=== PATIENT | female | born 2000 | race Caucasian/White ===

== ENCOUNTER 2018-07-07 18:38 | Emergency (ER) | payer SELFPAY ==
[2018-07-07 18:52] VITALS: BP 121/75; PULSE 94; RESP 18; TEMP 36.6; O2SAT 100; BMI 27.4
--- NOTE | 2018-07-07 20:26 | DI.RAD.S_ITS ---
PROCEDURE: XR ACUTE ABDOMEN SERIES INDICATIONS: Abdominal pain, N/V/D TECHNIQUE: One view chest and two views of the abdomen were acquired. COMPARISON: None. FINDINGS: Surgical changes and devices: None. Chest: Lungs are clear. Heart size is normal. No pleural effusions. No pneumoperitoneum. Abdomen: Bowel gas pattern is normal. There is an appearance of increased opacity identified within the right hemiabdomen and pelvis overlying the colon. Visualized solid organ contours appear normal. Bones: No suspicious bony lesions. IMPRESSION: 1. No obstruction. 2. Opacity overlying the right colon suspected to be related to bowel contents. Dictated by: Cristina Garcia M.D. on 07/07/2018 at 20:44 Approved by: Cristina Garcia M.D. on 07/07/2018 at 20:46
[2018-07-07] MEDS: SODIUM CHLORIDE 0.9% 1,000 ML 1000 ML IV (20:56)
[2018-07-07] MEDS: ONDANSETRON 4 MG/2 ML INJ IV (20:56)
[2018-07-07 21:07] LABS: Add Manual Diff / Slide Review NO; Basophils Percent Auto 0.2 % (0-2); Hematocrit 41.1 % (36-46); Hemoglobin 13.8 g/dL (12.0-16.0); Lymphocytes Percent Auto 8.2 % (25-40); Mean Corpuscular HGB Conc 33.7 % (30-36); Mean Corpuscular Hemoglobin 29.5 PG (26-34); Mean Corpuscular Volume 87.5 fL (80-100); Monocytes Percent Auto 9.2 % (3-14); Neutrophils Absolute Auto 12000 /uL (1500-7000); Neutrophils Percent Auto 82.4 % (50-75); Platelet Count 288 X10^3/uL (150-400); White Blood Cell Count 14.6 X10^3/uL (4.5-11.0)
[2018-07-07 21:15] LABS: Alanine Aminotransferase 25 IU/L (9-52); Albumin 4.9 g/dL (3.5-5.0); Albumin Globulin Ratio 1.3 (1.0-2.8); Alkaline Phosphatase 59 U/L (38-126); Aspartate Aminotransferase 29 IU/L (14-36); BUN Creatinine Ratio 18.6 (6-22); Bilirubin Total 0.6 mg/dL (0.2-1.3); Blood Urea Nitrogen 13 mg/dL (7-17); Calcium 9.6 mg/dL (8.4-10.2); Carbon Dioxide 30 mmol/L (22-32); Chloride 93 mmol/L (98-107); Estimated Glomerular Filt Rate > 60.0 mL/min (>60); Globulin 3.8 g/dL (1.7-4.1); Glucose 97 mg/dL (70-100); Potassium 3.1 mmol/L (3.4-5.1); Sodium 139 mmol/L (137-145); Total Protein 8.7 g/dL (6.3-8.2)
[2018-07-07 21:17] LABS: HEMOLYSIS 52 (0-50)
--- NOTE | 2018-07-07 21:18 | ED.NAVMDI ---
HPI - Nausea/Vomiting/Diarrhea General Chief complaint: Nausea/Vomiting/Diarrhea Stated complaint: states vomiting water x3 days Time Seen by Provider: 07/07/18 20:25 Source: patient and family Mode of arrival: ambulatory Limitations: no limitations History of Present Illness HPI Narrative: 17-year-old female, nonsmoker presents to the emergency department with her father and a chief complaint of nausea and vomiting over the past few days. She denies fever or chills. She has had abdominal discomfort and cramping that builds until she vomits at which point improved greatly. She has had no diarrhea. She feels a bit fatigued but denies any significant dizziness or lightheadedness. She denies any recent antibiotic use, international travel, exposure to ill persons or bad food MD complaint: nausea and vomiting Onset (ago): day(s) Description of Vomiting: watery Description of Diarrhea: none Associated Abdominal Pain: Yes Location of pain: diffuse Severity: mild Quality: cramping Relieving factors: vomiting Exacerbating factors: none Associated symptoms: denies other symptoms Related Data Previous Rx's Medication Instructions Recorded ondansetron 4 mg PO TID-QID PRN #10 tab 07/07/18 potassium chloride 20 meq PO DAILY #5 tab 07/07/18 Allergies Allergy/AdvReac Type Severity Reaction Status Date / Time No Known Drug Allergies Allergy Verified 07/07/18 18:57 Review of Systems Review of Systems All systems reviewed & are unremarkable except as noted in HPI and below Constitutional Denies chills, Denies fever(s), Denies lethargy and Denies weakness Eyes Denies change in vision, Denies eye discharge, Denies irritation and Denies loss of vision ENT Ears, Nose, Mouth, and Throat: Denies change in voice, Denies neck pain and Denies sore throat Cardiovascular Denies chest pain, Denies irregular heart rhythm, Denies lightheadedness, Denies palpitations, Denies dyspnea, Denies dyspnea on exertion and Denies orthopnea Respiratory Denies cough, Denies dyspnea, Denies dyspnea on exertion and Denies wheezing Gastrointestinal Gastrointestinal: Denies abdominal pain, Denies change in bowel habits, Denies diarrhea, Reports nausea and Reports vomiting Genitourinary Denies hematuria, Denies flank pain, Denies urinary incontinence and Denies urinary urgency Musculoskeletal Denies neck pain Integumentary/Breasts Denies pruritus, Denies erythema, Denies rash and Denies wounds Neurologic Denies confusion, Denies loss of vision and Denies weakness Psychiatric Denies anxiety, Denies confusion, Denies depression, Denies homicidal ideation and Denies suicidal ideation Endocrine Denies palpitations Hematologic/Lymphatic Denies easy bruising Allergic/Immunologic Denies wheezing [facility] Social History Smoking Status: Never smoker Exam Narrative Exam Narrative: 17-year-old female in mild distress, holding an emesis bag Initial Vital Signs Initial Vital Signs: Vital Signs Temperature 97.8 F 07/07/18 18:52 Pulse Rate 94 H 07/07/18 18:52 Respiratory Rate 18 07/07/18 18:52 Blood Pressure 121/75 07/07/18 18:52 Pulse Oximetry 100 07/07/18 18:52 Const General: cooperative and well developed Nutritional Appearance: well nourished Orientation: alert, awake, oriented x3 and not confused HENMT Head: normal to inspection Ears: hearing grossly normal bilaterally Nose: external nose normal Face and sinus: normal facial exam Eyes General: appearance normal, both eyes and all related structures Eyelids: eyelids normal Conjunctivae: conjunctivae normal Sclera: sclerae normal Pupils: PERRL EOM: EOM intact bilaterally Chest Chest: normal inspection of the chest Cardio Rate: regular rate Rhythm: regular rhythm Heart Sounds: no click, no gallops, no murmurs and no rubs Pulses: normal peripheral pulses GI Inspection: non-distended Palpation: soft, no hepatosplenomegaly, No guarding, No pulsatile mass and No tender Auscultation: normal bowel sounds Skin General: no rashes or lesions noted, No jaundice and No petechiae Extrem General: full ROM, no clubbing, cyanosis or edema, no pedal edema and no calf tenderness Course Orders Ordered: ED Orders 07/07/18 20:26 XR acute abdomen series Stat 07/07/18 21:02 Complete Blood Count AUTO DIFF Stat Comprehensive Metabolic Panel Stat Discontinued Medications Sodium Chloride (Normal Saline 0.9%) 1,000 mls @ 1,000 mls/hr IV BOLUS ONE Stop: 07/07/18 21:24 Last Infusion: 07/07/18 21:56 Dose: 0 mls/hr Admin: 07/07/18 20:56 Dose: 1,000 mls/hr Ondansetron HCl (Zofran) 4 mg IV NOW ONE Stop: 07/07/18 20:26 Last Admin: 07/07/18 20:56 Dose: 4 mg Ondansetron HCl (Zofran Odt Prepack) 1 bottle MISC SEEINSTR ONE Stop: 07/07/18 21:31 Last Admin: 07/07/18 21:44 Dose: 1 bottle Pantoprazole Sodium (Protonix) 40 mg IV NOW ONE Stop: 07/07/18 21:19 Last Admin: 07/07/18 21:21 Dose: 40 mg Potassium Chloride (Potassium Chloride) 40 meq PO NOW ONE Stop: 07/07/18 21:21 Last Admin: 07/07/18 21:27 Dose: 40 meq Reevaluation(s) Reevaluation #1: Patient feels notable improvement after above-stated therapies Vital Signs - 8 hr 07/07/18 18:52 07/07/18 21:57 Temperature 97.8 F Pulse Rate 94 H 74 Respiratory Rate 18 15 Blood Pressure 121/75 Blood Pressure [Right Arm] 113/61 Pulse Oximetry 100 98 MDM - Nausea/Vomiting/Diarrhea Lab Data Attestation: I reviewed the patient's lab results. Result diagrams: 07/07/18 21:02 07/07/18 21:02 Lab Results 07/07/18 07/07/18 Range/Units 21:02 21:02 WBC 14.6 H (4.5-11.0) X10^3/uL RBC 4.70 (4.0-5.2) X10^6/uL Hgb 13.8 (12.0-16.0) g/dL Hct 41.1 (36-46) % MCV 87.5 (80-100) fL MCH 29.5 (26-34) PG MCHC 33.7 (30-36) % RDW 14.0 (11.6-14.8) % Plt Count 288 (150-400) X10^3/uL Neut % (Auto) 82.4 H (50-75) % Lymph % (Auto) 8.2 L (25-40) % [place] % (Auto) 9.2 (3-14) % Eos % (Auto) 0.0 L (2-4) % Baso % (Auto) 0.2 (0-2) % Neut # (Auto) 98830 H (6759-4690) /uL Sodium 139 (137-145) mmol/L Potassium 3.1 L (3.4-5.1) mmol/L Chloride 93 L (98-107) mmol/L Carbon Dioxide 30 (22-32) mmol/L BUN 13 (7-17) mg/dL Creatinine 0.70 (0.52-1.04) mg/dL Estimated GFR > 60.0 (>60) mL/min BUN/Creatinine Ratio 18.6 (6-22) Glucose 97 (70-100) mg/dL Calcium 9.6 (8.4-10.2) mg/dL Total Bilirubin 0.6 (0.2-1.3) mg/dL AST 29 (14-36) IU/L ALT 25 (9-52) IU/L Alkaline Phosphatase 59 (38-126) U/L Total Protein 8.7 H (6.3-8.2) g/dL Albumin 4.9 (3.5-5.0) g/dL Globulin 3.8 (1.7-4.1) g/dL Albumin/Globulin Ratio 1.3 (1.0-2.8) Imaging Data Abdominal x-ray: Radiologist's impression: [place] [address] XRay Report Signed Patient: Isamar Wright MR#: [id number] : 2000 Acct:[id number] Age/Sex: 17 / F Date of Service: 07/07/18 Loc: ED Accession Number: [id number] Procedure: XR acute abdomen series Ordering Provider: Jesse Moore D.O. PROCEDURE: XR ACUTE ABDOMEN SERIES INDICATIONS: Abdominal pain, N/V/D TECHNIQUE: One view chest and two views of the abdomen were acquired. COMPARISON: None. FINDINGS: Surgical changes and devices: None. Chest: Lungs are clear. Heart size is normal. No pleural effusions. No pneumoperitoneum. Abdomen: Bowel gas pattern is normal. There is an appearance of increased opacity identified within the right hemiabdomen and pelvis overlying the colon. Visualized solid organ contours appear normal. Bones: No suspicious bony lesions. IMPRESSION: 1. No obstruction. 2. Opacity overlying the right colon suspected to be related to bowel contents. Dictated by: Cristina Garcia M.D. on 07/07/2018 at 20:44 Approved by: Cristina Garcia M.D. on 07/07/2018 at 20:46 Discharge Plan Departure Patient Disposition: Home Clinical Impression: Gastroenteritis Discharge Date/Time: 07/07/18 22:06 Interventions: ED Discharge Assessment Last Done: 07/07/18 22:05 Instructions: DI for Viral Gastroenteritis -- Adult Activity Restrictions/Additional Instructions: 1. Drink plenty of fluids with frequent small sips. 2. For the next 24 hours a clear liquid diet is advised. After that please employ a brat diet which would include bananas, rice, apples, toast. 3. Please take medications as directed. 4. Please follow-up with your doctor in the next 1-2 days. Call the office for an appointment. 5. Please return to the emergency Department for any worsening or persistent symptoms, such as increasing pain or fever. Prescriptions: New ondansetron 4 mg tablet,disintegrating 4 mg PO TID-QID PRN (Reason: nausea and vomiting) Qty: 10 RF: 0 potassium chloride 20 mEq tablet extended release 20 meq PO DAILY Qty: 5 RF: 0 Referrals: Carolin Sauceda MD [Non-Staff] -
[2018-07-07] MEDS: PANTOPRAZOLE 40 MG VIAL IV (21:21)
--- NOTE | 2018-07-07 21:22 | ED_ITS ---
HPI - Nausea/Vomiting/Diarrhea General Chief complaint: Nausea/Vomiting/Diarrhea Stated complaint: states vomiting water x3 days Time Seen by Provider: 07/07/18 20:25 Source: patient and family Mode of arrival: ambulatory Limitations: no limitations History of Present Illness HPI Narrative: 17-year-old female, nonsmoker presents to the emergency department with her father and a chief complaint of nausea and vomiting over the past few days. She denies fever or chills. She has had abdominal discomfort and cramping that builds until she vomits at which point improved greatly. She has had no diarrhea. She feels a bit fatigued but denies any significant dizziness or lightheadedness. She denies any recent antibiotic use , international travel, exposure to ill persons or bad food MD complaint: nausea and vomiting Onset (ago): day(s) Description of Vomiting: watery Description of Diarrhea: none Associated Abdominal Pain: Yes Location of pain: diffuse Severity: mild Quality: cramping Relieving factors: vomiting Exacerbating factors: none Associated symptoms: denies other symptoms Related Data Previous Rx's Medication Instructions Recorded ondansetron 4 mg PO TID-QID PRN #10 tab 07/07/18 potassium chloride 20 meq PO DAILY #5 tab 07/07/18 Allergies Allergy/AdvReac Type Severity Reaction Status Date / Time No Known Drug Allergies Allergy Verified 07/07/18 18:57 Review of Systems Review of Systems All systems reviewed & are unremarkable except as noted in HPI and below Constitutional Denies chills, Denies fever(s), Denies lethargy and Denies weakness Eyes Denies change in vision, Denies eye discharge, Denies irritation and Denies loss of vision ENT Ears, Nose, Mouth, and Throat: Denies change in voice, Denies neck pain and Denies sore throat Cardiovascular Denies chest pain, Denies irregular heart rhythm, Denies lightheadedness, Denies palpitations, Denies dyspnea, Denies dyspnea on exertion and Denies orthopnea Respiratory Denies cough, Denies dyspnea, Denies dyspnea on exertion and Denies wheezing Gastrointestinal Gastrointestinal: Denies abdominal pain, Denies change in bowel habits, Denies diarrhea, Reports nausea and Reports vomiting Genitourinary Denies hematuria, Denies flank pain, Denies urinary incontinence and Denies urinary urgency Musculoskeletal Denies neck pain Integumentary/Breasts Denies pruritus, Denies erythema, Denies rash and Denies wounds Neurologic Denies confusion, Denies loss of vision and Denies weakness Psychiatric Denies anxiety, Denies confusion, Denies depression, Denies homicidal ideation and Denies suicidal ideation Endocrine Denies palpitations Hematologic/Lymphatic Denies easy bruising Allergic/Immunologic Denies wheezing [facility] Social History Smoking Status: Never smoker Exam Narrative Exam Narrative: 17-year-old female in mild distress, holding an emesis bag Initial Vital Signs Initial Vital Signs: Vital Signs Temperature 97.8 F 07/07/18 18:52 Pulse Rate 94 H 07/07/18 18:52 Respiratory Rate 18 07/07/18 18:52 Blood Pressure 121/75 07/07/18 18:52 Pulse Oximetry 100 07/07/18 18:52 Const General: cooperative and well developed Nutritional Appearance: well nourished Orientation: alert, awake, oriented x3 and not confused HENMT Head: normal to inspection Ears: hearing grossly normal bilaterally Nose: external nose normal Face and sinus: normal facial exam Eyes General: appearance normal, both eyes and all related structures Eyelids: eyelids normal Conjunctivae: conjunctivae normal Sclera: sclerae normal Pupils: PERRL EOM: EOM intact bilaterally Chest Chest: normal inspection of the chest Cardio Rate: regular rate Rhythm: regular rhythm Heart Sounds: no click, no gallops, no murmurs and no rubs Pulses: normal peripheral pulses GI Inspection: non-distended Palpation: soft, no hepatosplenomegaly, No guarding, No pulsatile mass and No tender Auscultation: normal bowel sounds Skin General: no rashes or lesions noted, No jaundice and No petechiae Extrem General: full ROM, no clubbing, cyanosis or edema, no pedal edema and no calf tenderness Course Orders Ordered: ED Orders 07/07/18 20:26 XR acute abdomen series Stat 07/07/18 21:02 Complete Blood Count AUTO DIFF Stat Comprehensive Metabolic Panel Stat Discontinued Medications Sodium Chloride (Normal Saline 0.9%) 1,000 mls @ 1,000 mls/hr IV BOLUS ONE Stop: 07/07/18 21:24 Last Infusion: 07/07/18 21:56 Dose: 0 mls/hr Admin: 07/07/18 20:56 Dose: 1,000 mls/hr Ondansetron HCl (Zofran) 4 mg IV NOW ONE Stop: 07/07/18 20:26 Last Admin: 07/07/18 20:56 Dose: 4 mg Ondansetron HCl (Zofran Odt Prepack) 1 bottle MISC SEEINSTR ONE Stop: 07/07/18 21:31 Last Admin: 07/07/18 21:44 Dose: 1 bottle Pantoprazole Sodium (Protonix) 40 mg IV NOW ONE Stop: 07/07/18 21:19 Last Admin: 07/07/18 21:21 Dose: 40 mg Potassium Chloride (Potassium Chloride) 40 meq PO NOW ONE Stop: 07/07/18 21:21 Last Admin: 07/07/18 21:27 Dose: 40 meq Reevaluation(s) Reevaluation #1: Patient feels notable improvement after above-stated therapies Vital Signs - 8 hr 07/07/18 18:52 07/07/18 21:57 Temperature 97.8 F Pulse Rate 94 H 74 Respiratory Rate 18 15 Blood Pressure 121/75 Blood Pressure [Right Arm] 113/61 Pulse Oximetry 100 98 MDM - Nausea/Vomiting/Diarrhea Lab Data Attestation: I reviewed the patient's lab results. Result diagrams: 07/07/18 21:02 07/07/18 21:02 Lab Results 07/07/18 07/07/18 Range/Units 21:02 21:02 WBC 14.6 H (4.5-11.0) X10^3/uL RBC 4.70 (4.0-5.2) X10^6/uL Hgb 13.8 (12.0-16.0) g/dL Hct 41.1 (36-46) % MCV 87.5 (80-100) fL MCH 29.5 (26-34) PG MCHC 33.7 (30-36) % RDW 14.0 (11.6-14.8) % Plt Count 288 (150-400) X10^3/uL Neut % (Auto) 82.4 H (50-75) % Lymph % (Auto) 8.2 L (25-40) % [place] % (Auto) 9.2 (3-14) % Eos % (Auto) 0.0 L (2-4) % Baso % (Auto) 0.2 (0-2) % Neut # (Auto) 36450 H (0638-6188) /uL Sodium 139 (137-145) mmol/L Potassium 3.1 L (3.4-5.1) mmol/L Chloride 93 L (98-107) mmol/L Carbon Dioxide 30 (22-32) mmol/L BUN 13 (7-17) mg/dL Creatinine 0.70 (0.52-1.04) mg/dL Estimated GFR > 60.0 (>60) mL/min BUN/Creatinine Ratio 18.6 (6-22) Glucose 97 (70-100) mg/dL Calcium 9.6 (8.4-10.2) mg/dL Total Bilirubin 0.6 (0.2-1.3) mg/dL AST 29 (14-36) IU/L ALT 25 (9-52) IU/L Alkaline Phosphatase 59 (38-126) U/L Total Protein 8.7 H (6.3-8.2) g/dL Albumin 4.9 (3.5-5.0) g/dL Globulin 3.8 (1.7-4.1) g/dL Albumin/Globulin Ratio 1.3 (1.0-2.8) Imaging Data Abdominal x-ray: Radiologist's impression: [place] [address] XRay Report Signed Patient: Isamar Wright MR#: [id number] : 2000 Acct:[id number] Age/Sex: 17 / F Date of Service: 07/07/18 Loc: ED Accession Number: [id number] Procedure: XR acute abdomen series Ordering Provider: Jesse Moore D.O. PROCEDURE: XR ACUTE ABDOMEN SERIES INDICATIONS: Abdominal pain, N/V/D TECHNIQUE: One view chest and two views of the abdomen were acquired. COMPARISON: None. FINDINGS: Surgical changes and devices: None. Chest: Lungs are clear. Heart size is normal. No pleural effusions. No pneumoperitoneum. Abdomen: Bowel gas pattern is normal. There is an appearance of increased opacity identified within the right hemiabdomen and pelvis overlying the colon. Visualized solid organ contours appear normal. Bones: No suspicious bony lesions. IMPRESSION: 1. No obstruction. 2. Opacity overlying the right colon suspected to be related to bowel contents. Dictated by: Cristina Garcia M.D. on 07/07/2018 at 20:44 Approved by: Cristina Garcia M.D. on 07/07/2018 at 20:46 Discharge Plan Departure Patient Disposition: Home Clinical Impression: Gastroenteritis Discharge Date/Time: 07/07/18 22:06 Interventions: ED Discharge Assessment Last Done: 07/07/18 22:05 Instructions: DI for Viral Gastroenteritis -- Adult Activity Restrictions/Additional Instructions: 1. Drink plenty of fluids with frequent small sips. 2. For the next 24 hours a clear liquid diet is advised. After that please employ a brat diet which would include bananas, rice, apples, toast. 3. Please take medications as directed. 4. Please follow-up with your doctor in the next 1-2 days. Call the office for an appointment. 5. Please return to the emergency Department for any worsening or persistent symptoms, such as increasing pain or fever. Prescriptions: New ondansetron 4 mg tablet,disintegrating 4 mg PO TID-QID PRN (Reason: nausea and vomiting) Qty: 10 RF: 0 potassium chloride 20 mEq tablet extended release 20 meq PO DAILY Qty: 5 RF: 0 Referrals: Carolin Sauceda MD [Non-Staff] -
[2018-07-07] MEDS: POTASSIUM CHLORIDE 20 MEQ/15 ML UDC 40 MEQ PO (21:27)
[2018-07-07] MEDS: ONDANSETRON 4 MG ODT PREPACK 1 BOTTLE MISC (21:44)
[2018-07-07 21:57] VITALS: BP 113/61; PULSE 74; RESP 15; O2SAT 98
== END 2018-07-07 22:06 | disposition home or self-care (01) ==
PROVIDERS: Emergency Provider Emergency Medicine
DX: K52.9 Noninfective gastroenteritis and colitis, unspecified (principal)
CPT/HCPCS: 36591; 74022; 80053; 85025; 96361; 96374; 96375; 99283; 99284; C9113; J2405

== ENCOUNTER → 2022-08-18 13:22 | Outpatient (CLI) | payer OTHER, SELFPAY ==
[2022-08-18 19:22] LABS: Add Manual Diff / Slide Review NO; Basophils Absolute Auto 0 /uL (0-100); Basophils Percent Auto 0.4 % (0-2); Eosinophils Absolute Auto 100 /uL (0-450); Eosinophils Percent Auto 2.4 % (2-4); Hematocrit 41.2 % (36-46); Hemoglobin 13.6 g/dL (12.0-16.0); Lymphocytes Absolute Auto 1300 /uL (1100-4500); Lymphocytes Percent Auto 21.5 % (25-40); Mean Corpuscular Hemoglobin 30.1 PG (26-34); Mean Corpuscular Volume 91.1 fL (80-100); Monocytes Absolute Auto 600 /uL (0-900); Monocytes Percent Auto 9.7 % (3-14); Neutrophils Absolute Auto 3900 /uL (1500-7000); Platelet Count 231 X10^3/uL (150-400); Red Blood Cell Count 4.52 X10^6/uL (4.0-5.2); Red Cell Distribution Width 13.9 % (11.6-14.8)
[2022-08-18 19:38] LABS: Alanine Aminotransferase 16 IU/L (<35); Albumin 4.1 g/dL (3.5-5.0); Albumin Globulin Ratio 1.4 (1.0-2.8); Alkaline Phosphatase 71 U/L (38-126); Aspartate Aminotransferase 22 IU/L (14-36); Bilirubin Total 0.5 mg/dL (0.2-1.3); Blood Urea Nitrogen 6 mg/dL (7-17); Calcium 9.3 mg/dL (8.4-10.2); Carbon Dioxide 26 mmol/L (22-32); Chloride 102 mmol/L (98-107); Estimated Glomerular Filt Rate > 60 mL/min (>60); Globulin 2.9 g/dL (1.7-4.1); Glucose 97 mg/dL (70-100); HEMOLYSIS < 15 (0-50); Potassium 4.1 mmol/L (3.4-5.1); Sodium 137 mmol/L (137-145)
[2022-08-18 19:48] LABS: Erythrocyte Sedimentation Rate 2 MM/HR (0-20)
[2022-08-18 20:00] LABS: TSH w/ Reflex to FT4 2.99 uIU/mL (0.47-4.68)
[2022-08-21 12:53] LABS: Fecal Immunochemical Test Negative (Negative)
== END ==
PROVIDERS: PCP Physician Assistant; Visit Provider Physician Assistant
DX: L65.9 Nonscarring hair loss, unspecified (principal); R19.4 Change in bowel habit
CPT/HCPCS: 80053; 82274; 84443; 85025; 85651

== ENCOUNTER → 2023-09-14 11:50 | Outpatient (CLI) | payer OTHER, SELFPAY ==
--- NOTE | 2023-09-14 11:52 | DI.US.S_ITS ---
ULTRASOUND OF RIGHT BREAST: 09/14/2023 CLINICAL: Right breast skin dimpling. No prior exams were available for comparison. Real-time ultrasound of the right breast was performed on the areas of interest. Corona scale images of the real-time examination were reviewed. IMPRESSION: NEGATIVE There is no sonographic evidence of malignancy. There are no sonographic abnormalities seen in the right breast to correspond with the areas of clinical concern at 4 and 7 o'clock, however, clinical followup is recommended. This exam was interpreted at Station ID: [id number]. Electronically Signed By: Ariane Coker M.D. lk/:09/14/2023 13:17:02 letter sent: Clinical Evaluation Ultrasound BI-RADS: 1 Negative
== END ==
PROVIDERS: PCP Physician Assistant; Referring Provider Physician Assistant; Visit Provider Physician Assistant
DX: N64.89 Other specified disorders of breast (principal); R23.4 Changes in skin texture; Z80.3 Family history of malignant neoplasm of breast
CPT/HCPCS: 76642

== ENCOUNTER → 2024-04-01 07:29 | Outpatient (CLI) | payer BC, SELFPAY ==
--- NOTE | 2024-04-01 07:32 | DI.US.S_ITS ---
LIMITED ULTRASOUND OF LEFT BREAST: 04/01/2024 CLINICAL: Left breast skin changes. Comparison is made to exam dated: 09/14/2023 [facility]. Color flow and real-time ultrasound of the left breast 5 o'clock region were performed. Corona scale images of the real-time examination were reviewed. No significant abnormalities were seen sonographically in the left breast in the region of concern. IMPRESSION: NEGATIVE There is no sonographic evidence of malignancy. Return to annual mammogram screening schedule is recommended. Exam findings were conveyed to the patient. Patient is advised to monitor for significant change. Clinical follow-up as needed. This exam was interpreted at Station ID: [id number]. Electronically Signed By: Marlon Ayoub M.D. [facility]/:04/01/2024 08:41:24 letter sent: Normal Exam ACR BI-RADS Category 1: Negative
--- NOTE | 2024-04-01 07:32 | DI.US.S_ITS ---
PROCEDURE: US EXTREMELY NONVASC UPPER RT INDICATIONS: right forearm mass TECHNIQUE: Real-time scanning was performed of the right forearm , with image documentation. COMPARISON: None. FINDINGS: The right forearm was imaged. There is no underlying sonographic abnormality. IMPRESSION: No sonographic evidence of a mass of the right forearm. If there is persistent concern for an underlying mass, consider follow-up evaluation with a right forearm x-ray and MRI of the forearm with and without contrast. Dictated by: Aramis Tavarez M.D. on 04/01/2024 at 21:55 Approved by: Aramis Tavarez M.D. on 04/01/2024 at 21:57
== END ==
PROVIDERS: PCP Physician Assistant; Referring Provider Physician Assistant; Visit Provider Physician Assistant
DX: R22.31 Localized swelling, mass and lump, right upper limb (principal); Z80.3 Family history of malignant neoplasm of breast; R23.4 Changes in skin texture
CPT/HCPCS: 76642; 76882